=== PATIENT | male | born 1970 | race American Indian/Alaskan Native ===

== ENCOUNTER 2017-11-30 08:03 | Emergency (ER) | payer SELFPAY ==
[2017-11-30 08:12] VITALS: BP 147/97
[2017-11-30 08:39] LABS: Basophils # (Auto) 0.1 K/mm3 (0.0-0.1); Eosinophils # (Auto) 0.4 K/mm3 (0.0-0.4); Monocytes # (Auto) 0.6 K/mm3 (0.0-0.8); Monocytes % (Auto) 8.4 % (0.0-7.3)
[2017-11-30 08:47] LABS: BUN/Creatinine Ratio 10; Blood Urea Nitrogen 9 mg/dL (9-20); Calcium 9.1 mg/dL (8.4-10.2); Hemolysis Index 17
[2017-11-30 10:07] LABS: Hematocrit 43.9 % (35.5-45.6); Red Blood Count 5.04 M/mm3 (3.65-5.03)
[2017-11-30 10:08] LABS: Basophils % (Auto) 1.2 % (0.0-1.8); Lymphocytes # (Auto) 2.5 K/mm3 (1.2-5.4); Mean Corpuscular HGB Conc 34 % (32-34); Mean Corpuscular Hemoglobin 30 pg (28-32); Mean Corpuscular Volume 87 fl (84-94); Platelet Count 187 K/mm3 (140-440); Red Cell Distribution Width 13.5 % (13.2-15.2)
--- NOTE | 2017-11-30 10:53 | Emergency Department Report ---
HPI - General Chief Complaint: Alcohol Time Seen by Provider: 11/30/17 10:37 - HPI HPI: Room 13 The patient is a 47-year-old male presented with a chief complaint of right knee pain. The patient is an extremely poor historian. Patient falls asleep easily requiring frequent reawakening and refocusing. The patient following answers that he came in for evaluation of his right knee pain. Patient will not give details about the knee pain including time of onset and if there is any preceding trauma. Location: Right knee Duration: Unknown Quality: Pain Severity: Unknown Modifying factors: Unknown Context: [see above] Mode of transportation: [not driving] ED Past Medical Hx - Past Medical History Additional medical history: unable to obtain - Surgical History Past Surgical History?: Yes Additional Surgical History: RIGHT KNEE SURGERY - Family History Family history: no significant - Social History Smoking Status: Current Every Day Smoker Substance Use Type: Alcohol - Medications Home Medications: Home Medications Medication Instructions Recorded Confirmed Last Taken Type Naproxen [Naprosyn] 500 mg PO Q12H PRN #20 tablet 11/30/17 Unknown Rx ED Review of Systems ROS: Stated complaint: SUBSTANCE ABUSE Other details as noted in HPI Comment: Unobtainable due to pts medical conditions Musculoskeletal: arthralgia Physical Exam - Physical Exam Vital Signs: Vital Signs 11/30/17 08:08 Temperature 97.6 F Pulse Rate 65 Respiratory 20 Rate Blood Pressure 147/97 O2 Sat by Pulse 98 Oximetry Physical Exam: GENERAL: The patient is well-developed well-nourished male sleeping on stretcher not appearing to be in acute distress. [] HEENT: Normocephalic. Atraumatic. Patient has moist mucous membranes. NECK: Supple. Trachea midline CHEST/LUNGS: Clear to auscultation. There is no respiratory distress noted. HEART/CARDIOVASCULAR: Regular. There is no tachycardia. There is no gallop rub or murmur. ABDOMEN: Abdomen is soft, nontender. Patient has normal bowel sounds. There is no abdominal distention. SKIN: There is no rash. There is no edema. There is no diaphoresis. NEURO: The patient is asleep but awakens to verbal and tactile stimuli. The patient is only intermittently cooperative. The patient has no focal neurologic deficits. The patient has normal speech MUSCULOSKELETAL: The right knee is semi-wrapped in an Alec wrap. There is no tenderness or deformity of the right knee appreciated. There is no evidence of acute injury. ED Course Vital Signs 11/30/17 08:08 Temperature 97.6 F Pulse Rate 65 Respiratory 20 Rate Blood Pressure 147/97 O2 Sat by Pulse 98 Oximetry ED Medical Decision Making - Lab Data Result diagrams: 11/30/17 08:20 11/30/17 08:20 Laboratory Tests 11/30/17 11/30/17 11/30/17 08:20 08:20 08:20 WBC RBC Hgb Hct MCV MCH MCHC RDW Plt Count Lymph % (Auto) [place] % (Auto) Eos % (Auto) Baso % (Auto) Lymph # [place] # Eos # Baso # Seg Neutrophils % Seg Neutrophils # Sodium 142 Potassium 3.6 Chloride 99.9 Carbon Dioxide 31 H Anion Gap 15 BUN 9 Creatinine 0.9 Estimated GFR > 60 BUN/Creatinine Ratio 10 Glucose 86 Calcium 9.1 Salicylates < 0.3 L Acetaminophen < 5.0 L Plasma/Serum Alcohol 11/30/17 11/30/17 08:20 08:20 WBC 7.1 RBC 5.04 H Hgb 15.0 Hct 43.9 MCV 87 MCH 30 MCHC 34 RDW 13.5 Plt Count 187 Lymph % (Auto) 35.0 [place] % (Auto) 8.4 H Eos % (Auto) 5.0 H Baso % (Auto) 1.2 Lymph # 2.5 [place] # 0.6 Eos # 0.4 Baso # 0.1 Seg Neutrophils % 50.4 Seg Neutrophils # 3.6 Sodium Potassium Chloride Carbon Dioxide Anion Gap BUN Creatinine Estimated GFR BUN/Creatinine Ratio Glucose Calcium Salicylates Acetaminophen Plasma/Serum Alcohol 0.05 - Radiology Data Radiology results: image reviewed (right knee x-ray) interpreted by me: Right knee x-ray-no acute fracture. - Differential Diagnosis polysubstance abuse, arthralgia, knee fracture Critical care attestation.: If time is entered above; I have spent that time in minutes in the direct care of this critically ill patient, excluding procedure time. ED Disposition Clinical Impression: Right knee pain Disposition: DC-01 TO HOME OR SELFCARE Is pt being admited?: No Does the pt Need Aspirin: No Condition: Stable Instructions: Arthralgia (ED) Additional Instructions: Return to the emergency department immediately should you develop worsening symptoms, fever, inability to tolerate food or liquid or any other concerns. Prescriptions: Naproxen [Naprosyn] 500 mg PO Q12H PRN #20 tablet PRN Reason: Pain Referrals: PRIMARY CARE, [Primary Care Provider] - 3-5 Days JOCE FREEMAN MD [Staff Physician] - 3-5 Days Time of Disposition: 12:57
--- NOTE | 2017-12-05 12:54 | XRay Report ---
RIGHT KNEE RADIOGRAPHS INDICATION: Pain. COMPARISON: 06/24/2016 tibia fibula views. FINDINGS: AP, oblique and crosstable lateral right knee radiographs demonstrate intact articulation with diffuse degenerative spurring, greatest involving the medial and patellofemoral compartments. No significant suprapatellar effusion. Distal femoral 2 horizontal metadiaphyseal threaded screws again noted with mild distal shaft heterogeneity. CONCLUSION: No acute right knee radiographic abnormality with degenerative and postsurgical changes again noted, as described. Thank you for the opportunity to participate in this patient's care.
== END 2017-11-30 14:58 | disposition home or self-care (01) ==
LOC: ED 08:03
DX: M25.561 Pain in right knee (principal); F10.99 Alcohol use, unspecified with unspecified alcohol-induced disorder; F17.200 Nicotine dependence, unspecified, uncomplicated; Z79.899 Other long term (current) drug therapy; Z59.0 Homelessness
CPT/HCPCS: 36415; 73562; 80048; 85025; 99284; G0480; 80320; 99283